=== PATIENT | female | born 1945 | race African-American/Black ===

== ENCOUNTER 2021-08-28 06:50 | Day surgery (SDC) | payer OTHER ==
[2021-08-26 15:08] VITALS: BMI 25.0
[2021-08-28] MEDS ORDERED: LIDOCAINE HCL/PF 2% SDV 5ML VIAL ONE (07:45)
[2021-08-28] MEDS ORDERED: PROPOFOL 20 ML ONE ×4 (07:45)
[2021-08-28 08:30] VITALS: TEMP 97.8
[2021-08-28 09:00] VITALS: BP 128/67; PULSE 70
== END 2021-08-28 09:07 | disposition home or self-care (01) ==
LOC: FASU-ENDO 06:50
PROVIDERS: ATTEND Internal Medicine Gastroenterology
PROC: 0DB68ZX Excision of Stomach, Via Natural or Artificial Opening Endoscopic, Diagnostic (ICD-10-PCS; 2021-08-28)
PROC: 0DB38ZX Excision of Lower Esophagus, Via Natural or Artificial Opening Endoscopic, Diagnostic (ICD-10-PCS; 2021-08-28)
PROC: 0DB98ZX Excision of Duodenum, Via Natural or Artificial Opening Endoscopic, Diagnostic (ICD-10-PCS; principal; 2021-08-28 08:14)
DX: K29.50 Unspecified chronic gastritis without bleeding (principal); K22.89 Other specified disease of esophagus; B37.81 Candidal esophagitis; I10 Essential (primary) hypertension; R10.13 Epigastric pain